=== PATIENT | female | born 1965 | race Two or more races ===

== ENCOUNTER 2021-10-07 21:25 | Emergency (ER) | payer BC ==
[~2021-10-07] VITALS: Ht 165.1 cm; Wt 53.5 kg
[2021-10-07] MEDS ORDERED: HYDROcodone/acetaminophen 5mg/325mg tablet PO ONE (22:00)
[2021-10-07] MEDS ORDERED: GABA-530 PO (22:02)
[2021-10-07 22:24] VITALS: BP 130/76
== END 2021-10-07 22:28 | disposition home or self-care (01) ==
LOC: ER 21:27
DX: B02.9 Zoster without complications (principal); Z79.899 Other long term (current) drug therapy
CPT/HCPCS: 99283